=== PATIENT | female | born 1985 | race Two or more races ===

== ENCOUNTER 2018-11-13 20:08 | Emergency (ER) | payer BC ==
[~2018-11-13] VITALS: Ht 160 cm; Wt 64.0 kg
[2018-11-13] MEDS ORDERED: LORAZEPAM INJ 2 MG/ML VIAL ONE (20:45)
[2018-11-13 20:53] VITALS: BP 141/60
[2018-11-13] MEDS ORDERED: LORAZEPAM INJ 2 MG/ML VIAL IM ONE (21:00)
== END 2018-11-13 22:53 | disposition home or self-care (01) ==
LOC: ER 20:15
DX: F41.9 Anxiety disorder, unspecified (principal); T42.4X5A Adverse effect of benzodiazepines, initial encounter; F32.9 Major depressive disorder, single episode, unspecified; R06.4 Hyperventilation; F12.10 Cannabis abuse, uncomplicated; Z88.0 Allergy status to penicillin; Z88.1 Allergy status to other antibiotic agents; Y92.89 Other specified places as the place of occurrence of the external cause
CPT/HCPCS: 96372; 99284; J2060